=== PATIENT | female | born 1985 | race Native Hawaiian/Other Pacific Islander ===

== ENCOUNTER 2016-06-05 20:21 | Emergency (ER) | payer OTHER ==
[2016-06-05] MEDS ORDERED: Metoclopramide 10 MG/2 ML SDV IVPUSH ONE (21:52)
[2016-06-05] MEDS ORDERED: Sodium Chloride 0.9% 1,000 ML IV ONE (21:52)
[2016-06-05] MEDS ORDERED: diphenhydrAMINE 50 MG/ML SDV IVPUSH ONE (21:53)
[2016-06-05] MEDS ORDERED: Ketorolac 30 MG/ML SDV IVPUSH ONE (21:54)
[2016-06-05 23:28] VITALS: BP 131/85
--- NOTE | 2016-06-06 05:37 | ER ---
DATE SEEN: 06/05/2016 TIME SEEN: The patient was seen at 2055 hours. HISTORY OF PRESENT ILLNESS: This 31-year-old nulliparous woman, last menstrual period indeterminate, last Depo shot 04/18. She is sexually active with history onset at 1900 hours bilateral frontal temporal dull headache. She took ibuprofen. Did not relieve the headache. The headache was approximately 8/10 in intensity. It is similar to other headaches she has had in the past. She had bitemporal hemianopia that was transient, homonymous hemianopia. This lasted for a half hour and then relented. She has had a cold for the last 4 days with nasal congestion, sore throat, and mild chest discomfort with coughing. Last migraine was 06/02/2016. She has them frequently, once or twice a week. Never used Imitrex, just used [id number]-huxsetl medicines. She had mild sensation of numbness in the left lower extremity. CURRENT MEDICATIONS: 1. Hydroxyzine. 2. Venlafaxine 150 mg. 3. Montelukast 10 mg daily. 4. Vistaril 10 mg. 5. Loratadine 10 mg. ALLERGIES: Azithromycin and honey bee venom. History of asthma. A year ago she started diabetes pills; is not noted on the Red Med list. Her weight is 250 pounds. Status post appendectomy. Polycystic ovary disease diagnosed when she was 10 or 12 years of age. She has mild hirsutism. She has had previous laparoscopic hernia repairs. REVIEW OF SYSTEMS: Otherwise negative. PHYSICAL EXAMINATION: VITAL SIGNS: Blood pressure 152/95, heart rate 110, respirations 20, oxygen saturation 99%, temperature is 36.8 degrees centigrade. GENERAL: Alert, overweight woman, lying on her right side in somewhat of a position with covering her head. HEENT: PERRLA intact. Hearing intact. TMs negative. Pharynx without abnormality. NECK: Supple. No thyromegaly. No masses in neck. No cervical adenopathy. LUNGS: Clear to auscultation without rales, rhonchi, or wheezes. HEART: S1, S2. No irregular rate and rhythm. Mild sinus tachycardia. ABDOMEN: Soft. No guarding. No abdominal discomfort. NEUROLOGIC: Sitting up deep tendon reflexes upper and lower extremities hypoactive. Cranial nerves 2 through 12 intact. No past pointing. No pronator drift. No dysmetria. No decreased upper and lower body strength, 3+ out of 4+ strength. Gait appropriate. Romberg negative. ASSESSMENT: Migraine. The patient was treated with 1000 mL of normal saline flush, Reglan 10 mg IV, 50 mg Benadryl IV, and Toradol 30 mg IV. By 2250 hours her headache was gone. She was dismissed Toradol 10 mg, Reglan 10 mg, Benadryl 50 mg, Tylenol 1000 mg, take stat with the onset of headache. Follow up with doctor as needed, otherwise in 7 to 14 days. /[id number] RK/CALLIE MENDENHALL
== END 2016-06-05 23:25 | disposition home or self-care (01) ==
LOC: FB.ED 20:21
DX: G43.909 Migraine, unspecified, not intractable, without status migrainosus (principal); J45.909 Unspecified asthma, uncomplicated; Z88.1 Allergy status to other antibiotic agents; Z91.030 Bee allergy status
CPT/HCPCS: 87081; 87430; 96361; 96374; 96375; 99283; J1200; J1885; J2765; J7040

== ENCOUNTER 2016-08-01 22:25 | Emergency (ER) | payer OTHER ==
[2016-08-01 22:48] VITALS: BP 147/87
--- NOTE | 2016-08-01 22:57 | EDM.PDOC ---
ED HPI Trauma - General Chief Complaint: Lower Extremity Injury/Pain Stated Complaint: PAIN ON HER LT FOOT Time Seen by Provider: 08/01/16 22:45 Source: Reports: Patient, Old records History Limitations: Reports: No limitations - History of Present Illness INITIAL COMMENTS - FREE TEXT/NARRATIVE: Tammy comes into [facility] ED with a 3 hour hx of L lateral foot pain, significance unknown. 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 Pain without swelling seemed to emerge this pm , worse with palpation and wt bearing, and not improved with Ibuprofen 800 mg po. The R foot is asx. There is a PMH of Type II DM, currently on diet and oral meds. 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 Endocrine/Metabolic History: Reports: Diabetes, type II Social & Family History - Family History Family Medical History: Noncontributory - Tobacco Use Smoking Status *Q: Current Every Day Smoker Years of Tobacco use: 14 Packs/Tins Daily: 0.5 - Caffeine Use Caffeine Use: Reports: Energy drinks, Soda, Tea - Alcohol Use Days Per Week of Alcohol Use: 0 - Recreational Drug Use Recreational Drug Use: No - Living Situation & Occupation Living situation: Reports: Review of Systems - Review of Systems Review Of Systems: See Below Constitutional: Reports: no symptoms Eyes: Reports: no symptoms Ears: Reports: no symptoms Nose: Reports: no symptoms Mouth/Throat: Reports: no symptoms Respiratory: Reports: No Symptoms Cardiovascular: Reports: no symptoms GI/Abdominal: Reports: No symptoms Genitourinary: Reports: no symptoms Musculoskeletal: Reports: foot pain (left) Skin: Reports: no symptoms Neurological: Reports: No Symptoms Psychiatric: Reports: no symptoms Trauma Exam - Physical Exam Exam: See Below Exam Limited By: No limitations General Appearance: Reports: alert, WD/WN, no apparent distress Head: Reports: atraumatic, normocephalic Neck: Reports: non-tender, full range of motion, normal alignment, normal inspection Respiratory Exam: Reports: lungs clear Cardiovascular: Reports: normal peripheral pulses, regular rate, rhythm Back: Reports: full range of motion, normal inspection Extremities: Reports: no evidence of injury, normal range of motion, bony-point tenderness (overlying L 5th MT at base, no swelling or discoloration), pain with movement Neurologic: 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 No meds were dispensed. This is not a WC injury. Last Recorded V/S: Last Vital Signs Temp 36.8 C 08/01/16 22:41 Pulse 80 08/01/16 22:41 Resp 14 08/01/16 22:41 BP 147/87 H 08/01/16 22:41 Pulse Ox 98 08/01/16 22:41 Departure - Departure Time of Disposition: 22:55 Disposition: Home, Self-Care 01 Condition: fair Clinical Impression: Pain in left foot Forms: ED Department Discharge - Problem List & Annotations (1) Pain in left foot SNOMED Code(s): 18601660 Code(s): M79.672 - PAIN IN LEFT FOOT Status: Acute Current Visit: Yes Annotation/Comment:: Pain in L foot at base of 5th MT, and no injury hx. I suggested NSAIDs, ice massage, and follow up with PCP if sxs persist. - Problem List Review Problem List Initiated/Reviewed/Updated: Yes - Assessment/Plan Plan: Follow up with PCP if sxs persist.
== END 2016-08-01 22:59 | disposition home or self-care (01) ==
LOC: FB.ED 22:25
DX: M79.672 Pain in left foot (principal); E11.9 Type 2 diabetes mellitus without complications; F17.210 Nicotine dependence, cigarettes, uncomplicated; Z88.1 Allergy status to other antibiotic agents; Z91.030 Bee allergy status
CPT/HCPCS: 99283

== ENCOUNTER 2017-04-22 21:17 | Emergency (ER) | payer BC, OTHER ==
--- NOTE | 2017-04-22 21:41 | EDM.PDOC ---
ED HPI GENERAL MEDICAL PROBLEM - General Chief Complaint: Upper Extremity Injury/Pain Stated Complaint: FALL AND HURT RT WRIST Time Seen by Provider: 04/22/17 21:29 Source of Information: Reports: Patient History Limitations: Reports: No Limitations - History of Present Illness INITIAL COMMENTS - FREE TEXT/NARRATIVE: 32 y.o.w.f came to the ed 1 day after she slipped on ICE and fell onto her right wrist. No other acute medical issue. Pt has FROM of her wrist with minor discomfort. 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 Pain Score (Numeric/FACES): 7 - Related Data Allergies Allergy/AdvReac Type Severity Reaction Status Date / Time azithromycin [From Zithromax] Allergy Airway Verified 08/01/16 22:38 Tightness venom-honey bee Allergy Airway Verified 08/01/16 22:38 [bee venom (honey bee)] Tightness Home Meds: Home Meds metFORMIN [Glucophage XR] 500 mg PO BIDMEALS 08/01/16 [History] traZODone 50 mg PO BEDTIME 08/01/16 [History] Past Medical History - Past Health History Medical/Surgical History: Denies 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 Psychiatric History: Reports: Depression Endocrine/Metabolic History: Reports: Diabetes, Type II - Infectious Disease History Infectious Disease History: Reports: Chicken Pox - Past Surgical History GI Surgical History: Reports: Appendectomy Social & Family History - Family History Family Medical History: Noncontributory - Tobacco Use Smoking Status *Q: Current Every Day Smoker Years of Tobacco use: 14 Packs/Tins Daily: 0.5 - Caffeine Use Caffeine Use: Reports: Energy Drinks, Soda, Tea - Alcohol Use Days Per Week of Alcohol Use: 0 - Recreational Drug Use Recreational Drug Use: No - Living Situation & Occupation Living situation: Reports: Review of Systems - Review of Systems Review Of Systems: See Below Constitutional: Reports: No Symptoms Eyes: Reports: No Symptoms Ears: Reports: No Symptoms Nose: Reports: No Symptoms Mouth/Throat: Reports: No Symptoms Respiratory: Reports: No Symptoms Cardiovascular: Reports: No Symptoms GI/Abdominal: Reports: No Symptoms Genitourinary: Reports: No Symptoms Musculoskeletal: Reports: Joint Pain (right) Skin: Reports: No Symptoms Neurological: Reports: No Symptoms Psychiatric: Reports: No Symptoms ED EXAM, GENERAL - Physical Exam Exam: See Below Exam Limited By: No Limitations General Appearance: Alert, WD/WN, No Apparent Distress Eye Exam: Bilateral Eye: Normal Inspection Ears: Normal External Exam Ear Exam: Bilateral Ear: Auricle Normal Nose: Normal Inspection, Normal Mucosa, No Blood Throat/Mouth: Normal Inspection, Normal Lips Head: Atraumatic, Normocephalic Neck: Normal Inspection, Supple, Non-Tender, Full Range of Motion Respiratory/Chest: No Respiratory Distress, Lungs Clear, Normal Breath Sounds, Chest Non-Tender Cardiovascular: Normal Peripheral Pulses, Regular Rate, Rhythm, No Edema, No Murmur, No Rub, Tachycardia (initially, improbved to 11 BPM on D/C) Peripheral Pulses: 1+: Radial (L) GI/Abdominal: Normal Bowel Sounds, Soft, Non-Tender, No Organomegaly, No Abnormal Bruit (Female) Exam: Deferred Rectal (Female) Exam: Deferred Back Exam: Normal Inspection, Full Range of Motion Extremities: Normal Inspection, Normal Range of Motion, Normal Capillary Refill , Other (tender right mid wrist, neg snuff box sign) Neurological: Alert, Oriented, CN II-XII Intact Psychiatric: Normal Affect, Normal Mood Skin Exam: Warm, Dry, Intact, Normal Color, No Rash Lymphatic: No Adenopathy Course - Vital Signs Text/Narrative:: 32 y.o.w.f came to the ed 1 day after she slipped on ICE and fell onto her right wrist. No other acute medical issue. Pt has FROM of her wrist with minor discomfort. BP 170/92 pulse 123 RR 18 Pulse ox 95 Temp 36.9 PE: Minor discomfort right wrist to palpation. Imaging: R wrist: NAD, official report is pending Impression: right wrist sprain Tx: Ice, Motrin, Velcro splint Reexam: improved Pulse was 111 on D/C BP was 134/97 on D/C Plan: D/C with instructions Last Recorded V/S: Last Vital Signs Temp 36.6 C 04/22/17 21:29 Pulse 123 H 04/22/17 21:29 Resp 18 04/22/17 21:29 BP 170/92 H 04/22/17 21:29 Pulse Ox 95 04/22/17 21:29 - Orders/Labs/Meds Orders: Active Orders 24 hr Category Date Time Status Wrist Comp Min 3V Rt [CR] Stat Exams 04/22/17 21:28 Taken Departure - Departure Time of Disposition: 21:39 Disposition: Home, Self-Care 01 Condition: Good Clinical Impression: Left wrist sprain Qualifiers: Encounter type: initial encounter Qualified Code(s): S63.502A - Unspecified sprain of left wrist, initial encounter - Discharge Information Instructions: Wrist Sprain Referrals: Kostas Downs MD [Primary Care Provider] - Forms: ED Department Discharge Additional Instructions: please wear splint left wrist, please apply ice, rest and elevation, Motrin 600mg for pain every 98 hours with food. Please follow up, please come back if yours symptoms get worse acutely - My Orders Last 24 Hours: My Active Orders 04/22/17 21:28 Wrist Comp Min 3V Rt [CR] Stat - Assessment/Plan Last 24 Hours: My Active Orders 04/22/17 21:28 Wrist Comp Min 3V Rt [CR] Stat
[2017-04-23 02:48] VITALS: BP 139/82
--- NOTE | 2017-04-23 10:45 | CR ---
INDICATION: Fall, injury, swelling, pain. RIGHT WRIST: Three views of the right wrist revealed slight prominence of the volar fat pad line, raising question of a minimal wrist joint effusion. Additionally, the trabeculae in the distal shaft - metaphysis area of the radius appear slightly irregular and also at the adjacent ulna. This may be developmental. The possibility of a partial cortical fracture at these sites is difficult to entirely exclude. Depending upon clinical correlation, re- examination in 10-14 days should be of further diagnostic benefit regarding this possibility. No displaced fracture site, dislocation, or other significant bone or joint abnormality could be identified. MTDD
== END 2017-04-22 22:00 | disposition home or self-care (01) ==
LOC: FB.ED 21:17
DX: S63.501A Unspecified sprain of right wrist, initial encounter (principal); E11.9 Type 2 diabetes mellitus without complications; F17.210 Nicotine dependence, cigarettes, uncomplicated; Z79.84 Long term (current) use of oral hypoglycemic drugs; Z88.1 Allergy status to other antibiotic agents; Z91.030 Bee allergy status; W00.9XXA Unspecified fall due to ice and snow, initial encounter
CPT/HCPCS: 73110-RT; 99283

== ENCOUNTER 2019-02-02 20:26 | Emergency (ER) | payer BC, MEDICAID ==
[2019-02-02] MEDS ORDERED: Acetaminophen/Codeine 300-30 MG Tab PO ONE (20:27)
--- NOTE | 2019-02-02 20:54 | EDM.PDOC ---
ED HPI GENERAL MEDICAL PROBLEM - General Stated Complaint: KNEE Time Seen by Provider: 02/02/19 20:40 Source of Information: Reports: Patient - History of Present Illness INITIAL COMMENTS - FREE TEXT/NARRATIVE: pt c/o left knee sharp pain when ambulatory, states she woke up yesterday morning with this, denies any trauma or injury or any associated fever, chills, or swelling . pt denies any hx of similar problems in past, report using alive and it does not seem to help with pain. pt works at [employer] and report standing for long hrs. 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 Psychiatric History: Reports: Depression Endocrine/Metabolic History: Reports: Diabetes, Type II - Infectious Disease History Infectious Disease History: Reports: Chicken Pox - Past Surgical History GI Surgical History: Reports: Appendectomy Social & Family History - Family History Family Medical History: Noncontributory - Caffeine Use Caffeine Use: Reports: Energy Drinks, Soda, Tea - Living Situation & Occupation Living situation: Reports: ED ROS GENERAL - Review of Systems Review Of Systems: See Below Constitutional: Reports: No Symptoms Respiratory: Reports: No Symptoms Cardiovascular: Reports: No Symptoms GI/Abdominal: Reports: No Symptoms Skin: Reports: No Symptoms Neurological: Reports: No Symptoms ED EXAM, GI/ABD - Physical Exam Exam: See Below Exam Limited By: No Limitations General Appearance: Alert, Mild Distress Respiratory/Chest: No Respiratory Distress, Lungs Clear, Normal Breath Sounds Cardiovascular: Normal Peripheral Pulses, Regular Rate, Rhythm GI/Abdominal Exam: Normal Bowel Sounds, Soft, Non-Tender Extremities: Normal Inspection, Normal Range of Motion, Other (left knee is nl by inspection, no joint effusion or instabilty , pt has tendernss over the pattela and lateral bordes of left knee. ) Course - Vital Signs Text/Narrative:: clinically pt has a presentation consistent with tendinitis , and JOHN was applied, supportive mng was recommended. Departure - Departure Time of Disposition: 20:55 Disposition: Home, Self-Care 01 Clinical Impression: Knee pain, left - Discharge Information Referrals: Kostas Downs MD [Primary Care Provider] -
[2019-02-02] MEDS ORDERED: Acetaminophen/Codeine 300-30 MG Tab PO PRN (20:56)
[2019-02-02 21:53] VITALS: BP 145/90; PULSE 76
== END 2019-02-02 21:10 | disposition home or self-care (01) ==
LOC: FB.ED 20:26
DX: M25.562 Pain in left knee (principal); E11.9 Type 2 diabetes mellitus without complications; F32.9 Major depressive disorder, single episode, unspecified; Z79.84 Long term (current) use of oral hypoglycemic drugs; Z79.899 Other long term (current) drug therapy; Z88.1 Allergy status to other antibiotic agents; Z91.030 Bee allergy status
CPT/HCPCS: 99283; A9270

== ENCOUNTER 2019-08-20 15:10 | Emergency (ER) | payer BC ==
[2019-08-20 15:24] VITALS: BP 152/97; PULSE 97
--- NOTE | 2019-08-20 15:55 | EDM.PDOC ---
ED HPI GENERAL MEDICAL PROBLEM - General Chief Complaint: Eye Problems Stated Complaint: RT EYE PAIN Time Seen by Provider: 08/20/19 15:30 Source of Information: Reports: Patient History Limitations: Reports: No Limitations - History of Present Illness INITIAL COMMENTS - FREE TEXT/NARRATIVE: Patient presented to the ED because of pain on the right eye. She woke up and felt as if something is stuck on her right eye and with pain on blinking. right eye Pain Score (Numeric/FACES): 7 - Related Data Allergies Allergy/AdvReac Type Severity Reaction Status Date / Time azithromycin [From Zithromax] Allergy Airway Verified 02/02/19 21:53 Tightness venom-honey bee Allergy Airway Verified 02/02/19 21:53 [bee venom (honey bee)] Tightness Home Meds: Home Meds traZODone 100 mg PO BEDTIME 08/01/16 [History] Montelukast Sodium [Singulair] 10 mg PO DAILY 02/02/19 [History] Pantoprazole Sodium [Protonix] 40 mg PO DAILY 02/02/19 [History] Spironolactone [Aldactone] 100 mg PO DAILY 02/02/19 [History] Venlafaxine HCl [Venlafaxine ER] 150 mg PO DAILY 02/02/19 [History] atorvaSTATin [Lipitor] 20 mg PO BEDTIME 02/02/19 [History] metFORMIN HCl [Metformin HCl] 1,000 mg PO BID 02/02/19 [History] Hydrocort/Neomycin/Polymyxin B [Cortisporin Ophth Susp] 2 drop OP QID #1 bottle 08/20/19 [Rx] Past Medical History - Past Health History Medical/Surgical History: Denies 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 Psychiatric History: Reports: Depression Endocrine/Metabolic History: Reports: Diabetes, Type II - Infectious Disease History Infectious Disease History: Reports: Chicken Pox - Past Surgical History GI Surgical History: Reports: Appendectomy Social & Family History - Family History Family Medical History: Noncontributory - Tobacco Use Smoking Status *Q: Current Every Day Smoker Years of Tobacco use: 15 Packs/Tins Daily: 0.2 - Caffeine Use Caffeine Use: Reports: Energy Drinks - Recreational Drug Use Recreational Drug Use: No - Living Situation & Occupation Living situation: Reports: ED ROS GENERAL - Review of Systems Review Of Systems: See Below Constitutional: Reports: No Symptoms HEENT: Reports: Eye Pain Respiratory: Reports: No Symptoms Cardiovascular: Reports: No Symptoms Endocrine: Reports: No Symptoms GI/Abdominal: Reports: No Symptoms : Reports: No Symptoms Musculoskeletal: Reports: No Symptoms Skin: Reports: No Symptoms ED EXAM GENERAL W FULL EYE - Physical Exam Exam: See Below Exam Limited By: Intoxication General Appearance: Alert, No Apparent Distress Eye Exam: Bilateral Eye: PERRL Cornea Exam: Right: Corneal Abrasion (3 mm at the center) Ears: Normal External Exam, Normal Canal Nose: Normal Inspection, Normal Mucosa Throat/Mouth: Normal Inspection, Normal Lips Head: Atraumatic, Normocephalic Neck: Normal Inspection, Supple, Non-Tender Respiratory/Chest: No Respiratory Distress, Lungs Clear, Normal Breath Sounds Cardiovascular: Normal Peripheral Pulses, Regular Rate, Rhythm, No Edema, No Gallop GI/Abdominal: Normal Bowel Sounds, Soft, Non-Tender, No Organomegaly Back Exam: Normal Inspection, Full Range of Motion Extremities: Normal Inspection, Normal Range of Motion, Non-Tender Course - Vital Signs Text/Narrative:: The right eye was stained with a fluorescein stain and 2 drops of teracaine was instilled to numb it. There is no FB identified,however, there is 3 mm corneal abrasion at the very center. Last Recorded V/S: Last Vital Signs Temp 37.1 C 08/20/19 15:24 Pulse 97 20 15:24 Resp 14 08/20/19 15:24 BP 152/97 H 08/20/19 15:24 Pulse Ox 100 08/20/19 15:24 Departure - Departure Time of Disposition: 15:50 Disposition: Home, Self-Care 01 Condition: Good Clinical Impression: Corneal abrasion - Discharge Information Prescriptions: Hydrocort/Neomycin/Polymyxin B [Cortisporin Ophth Susp] 2 drop OP QID #1 bottle Instructions: Corneal Abrasion, [id number] Referrals: Kostas Downs MD [Primary Care Provider] - Forms: ED Department Discharge Additional Instructions: please read discharge instructions on corneal abrasion do not rub your eyes apply ice pack apply 1-2 drop of the tetracaine ey drops every 2 hours as needed for severe pain cortisporin eye drop, 2 drops to the right eye 4 times daily for 7 days follow up with an eye doctor of symptoms persist Sepsis Event Note - Evaluation Sepsis Screening Result: No Definite Risk - Focused Exam Vital Signs: Vital Signs Temp Pulse Resp BP Pulse Ox 08/20/19 15:24 37.1 C 97 14 152/97 H 100 Date Exam was Performed: 08/20/19 Time Exam was Performed: 16:00
== END 2019-08-20 16:05 | disposition home or self-care (01) ==
LOC: FB.ED 15:10
DX: S05.01XA Injury of conjunctiva and corneal abrasion without foreign body, right eye, initial encounter (principal); F17.210 Nicotine dependence, cigarettes, uncomplicated; E11.9 Type 2 diabetes mellitus without complications; Z79.84 Long term (current) use of oral hypoglycemic drugs; Z79.899 Other long term (current) drug therapy; F32.9 Major depressive disorder, single episode, unspecified; Z91.030 Bee allergy status; Z88.1 Allergy status to other antibiotic agents; W22.8XXA Striking against or struck by other objects, initial encounter
CPT/HCPCS: 99283

== ENCOUNTER 2020-11-27 22:29 | Emergency (ER) | payer BC ==
[2020-11-27] MEDS ORDERED: EPINEPHrine 1 MG/ML SDV IM ONE (22:40)
[2020-11-27] MEDS ORDERED: Sodium Chloride 0.9% 10 ML Syringe FLUSH PRN (22:40)
[2020-11-27] MEDS ORDERED: Famotidine 20 MG/2 ML SDV IVPUSH ONE (22:40)
[2020-11-27] MEDS ORDERED: diphenhydrAMINE 50 MG/ML SDV IVPUSH ONE (22:40)
[2020-11-27] MEDS ORDERED: methylPREDNISolone Sodium Succinate 125 MG/2 ML SDV IVPUSH ONE (22:42)
[2020-11-27] MEDS ORDERED: Sodium Chloride 0.9% 1,000 ML IV SCH (22:45)
--- NOTE | 2020-11-27 22:46 | EDM.PDOC ---
ED HPI GENERAL MEDICAL PROBLEM - General Stated Complaint: bee sting/allergic Time Seen by Provider: 11/27/20 22:42 Source of Information: Reports: Patient History Limitations: Reports: No Limitations - History of Present Illness INITIAL COMMENTS - FREE TEXT/NARRATIVE: Tammy complains of a bee sting to the lower lip of the mouth,about 1 and 1/2 hr ago. She complains of feeling anxious and has swelling of the tongue and throat. She has a previous allergic reaction to the bee stings where by she had difficultly breathing - Related Data Allergies Allergy/AdvReac Type Severity Reaction Status Date / Time azithromycin [From Zithromax] Allergy Airway Verified 02/02/19 21:53 Tightness venom-honey bee Allergy Airway Verified 02/02/19 21:53 [bee venom (honey bee)] Tightness Home Meds: Home Meds traZODone 100 mg PO BEDTIME 08/01/16 [History] Montelukast Sodium [Singulair] 10 mg PO DAILY 02/02/19 [History] Pantoprazole Sodium [Protonix] 40 mg PO DAILY 02/02/19 [History] Spironolactone [Aldactone] 100 mg PO DAILY 02/02/19 [History] Venlafaxine HCl [Venlafaxine ER] 150 mg PO DAILY 02/02/19 [History] atorvaSTATin [Lipitor] 20 mg PO BEDTIME 02/02/19 [History] metFORMIN HCl [Metformin HCl] 1,000 mg PO BID 02/02/19 [History] Hydrocort/Neomycin/Polymyxin B [Cortisporin Ophth Susp] 2 drop OP QID #1 bottle 08/20/19 [Rx] predniSONE 20 mg PO BID #10 tab 11/27/20 [Rx] Past Medical History - Past Health History Medical/Surgical History: Denies Medical/Surgical History [employer] History: Reports: Polycystic Ovaries Psychiatric History: Reports: Depression Endocrine/Metabolic History: Reports: Diabetes, Type II - Infectious Disease History Infectious Disease History: Reports: Chicken Pox - Past Surgical History GI Surgical History: Reports: Appendectomy Social & Family History - Family History Family Medical History: No Pertinent Family History - Caffeine Use Caffeine Use: Reports: Energy Drinks - Living Situation & Occupation Living situation: Reports: ED ROS GENERAL - Review of Systems Review Of Systems: Comprehensive ROS is negative, except as noted in HPI. ED EXAM, SKIN/RASH Exam: See Below Exam Limited By: No Limitations General Appearance: Alert, Anxious Ears: Normal External Exam Nose: Normal Inspection Throat/Mouth: No: Normal Lips (mild edema of lower lip ) Neck: Normal Inspection, Supple, Non-Tender, Full Range of Motion Respiratory/Chest: No Respiratory Distress, Lungs Clear, Normal Breath Sounds Cardiovascular: Tachycardia Extremities: Normal Inspection Neurological: Alert, Oriented, CN II-XII Intact Course - Orders/Labs/Meds Orders: Active Orders 24 hr Category Date Time Status Sodium Chloride 0.9% [Normal Saline] 1,000 ml Med 11/27/20 22:45 Active IV ASDIRECTED Sodium Chloride 0.9% [Saline Flush] Med 11/27/20 22:40 Active 10 ml FLUSH ASDIRECTED PRN Peripheral IV Insertion Adult [OM.PC] Routine Oth 11/27/20 22:40 Ordered Medication Orders Sodium Chloride (Normal Saline) 1,000 mls @ 999 mls/hr IV ASDIRECTED ISAEL Last Admin: 11/27/20 22:55 Dose: 999 mls/hr Documented by: BRENDA Sodium Chloride (Sodium Chloride 0.9% 10 Ml Syringe) 10 ml FLUSH ASDIRECTED PRN PRN Reason: Keep Vein Open Meds: Medications Generic Name Dose Route Start Last Admin Trade Name Freq PRN Reason Stop Dose Admin Sodium Chloride 1,000 mls @ 999 mls/hr 11/27/20 22:45 11/27/20 22:55 Normal Saline IV 999 mls/hr ASDIRECTED ISAEL Administration Sodium Chloride 10 ml 11/27/20 22:40 Sodium Chloride 0.9% 10 Ml Syringe FLUSH ASDIRECTED PRN Keep Vein Open Discontinued Medications Generic Name Dose Route Start Last Admin Trade Name Freq PRN Reason Stop Dose Admin Diphenhydramine HCl 50 mg 11/27/20 22:40 11/27/20 23:07 Diphenhydramine 50 Mg/Ml Sdv IVPUSH 11/27/20 22:41 50 mg ONETIME ONE Administration Epinephrine HCl 0.5 mg 11/27/20 22:40 11/27/20 23:09 Epinephrine 1 Mg/Ml Sdv IM 11/27/20 22:41 0.5 mg ONETIME ONE Administration Famotidine 20 mg 11/27/20 22:40 11/27/20 23:21 Famotidine 20 Mg/2 Ml Sdv IVPUSH 11/27/20 22:41 Not Given ONETIME ONE Famotidine Confirm 11/27/20 23:17 11/27/20 23:20 Famotidine In Ns Premix Administered 11/27/20 23:18 Not Given Dose 20 mg in 50 mls @ as directed .ROUTE .STK-MED ONE Famotidine 20 mg/ Premix 50 mls @ 200 mls/hr 11/27/20 23:19 11/27/20 23:20 IV 11/27/20 23:20 200 mls/hr ONETIME ONE Administration Ibuprofen 800 mg 11/27/20 23:45 Ibuprofen 800 Mg Tab PO 11/27/20 23:46 ONETIME ONE Methylprednisolone Sodium Succinate 125 mg 11/27/20 22:42 11/27/20 23:03 Methylprednisolone Sodium Succinate 125 Mg/2 Ml Sdv IVPUSH 11/27/20 22:43 125 mg ONETIME ONE Administration Departure - Departure Time of Disposition: 23:52 Disposition: Home, Self-Care 01 Clinical Impression: Bee sting - Discharge Information Prescriptions: predniSONE 20 mg PO BID #10 tab Instructions: Bee, Wasp, or Hornet Sting, Adult - Problem List & Annotations (1) Bee sting allergy SNOMED Code(s): 450245977 Code(s): Z91.030 - BEE ALLERGY STATUS Status: Acute Current Visit: No - Problem List Review Problem List Initiated/Reviewed/Updated: Yes - My Orders Last 24 Hours: My Active Orders 11/27/20 22:40 Sodium Chloride 0.9% [Saline Flush] 10 ml FLUSH ASDIRECTED PRN Peripheral IV Insertion Adult [OM.PC] Routine 11/27/20 22:45 Sodium Chloride 0.9% [Normal Saline] 1,000 ml IV ASDIRECTED - Assessment/Plan Last 24 Hours: My Active Orders 11/27/20 22:40 Sodium Chloride 0.9% [Saline Flush] 10 ml FLUSH ASDIRECTED PRN Peripheral IV Insertion Adult [OM.PC] Routine 11/27/20 22:45 Sodium Chloride 0.9% [Normal Saline] 1,000 ml IV ASDIRECTED Plan: We will obtain IV access,start a crystalloid.Place on a monitored bed,give epipen. Then Solumedrol/Benadryl and Pepcid.Discharged on oral prednisone
[2020-11-27] MEDS ORDERED: Famotidine/Normal Saline 20 MG/50 ML BAG ONE (23:17)
[2020-11-27] MEDS ORDERED: Famotidine/Normal Saline 20 MG in Premix Bag 1 BAG IV ONE (23:19)
[2020-11-27] MEDS ORDERED: Ibuprofen 800 MG Tab PO ONE (23:45)
[2020-11-29 22:29] VITALS: BP 169/104; PULSE 118
== END 2020-11-28 00:45 | disposition home or self-care (01) ==
LOC: FB.ED 22:29
DX: T63.441A Toxic effect of venom of bees, accidental (unintentional), initial encounter (principal); E11.9 Type 2 diabetes mellitus without complications; Z88.1 Allergy status to other antibiotic agents; Z91.030 Bee allergy status; Z79.84 Long term (current) use of oral hypoglycemic drugs; Z79.899 Other long term (current) drug therapy
CPT/HCPCS: 96372; 96374; 96375; 99282; A9270; J0171; J1200; J2930; J7030

== ENCOUNTER 2023-12-12 19:20 | Emergency (ER) | payer SELFPAY ==
[2023-12-12] MEDS ORDERED: Sodium Chloride 0.9% 10 ML Syringe FLUSH PRN (19:41)
[2023-12-12] MEDS: diphenhydrAMINE 50 MG/ML SDV IVPUSH ONE (19:46)
[2023-12-12] MEDS: methylPREDNISolone Sodium Succinate 125 MG/2 ML SDV IVPUSH ONE (19:46)
[2023-12-12 20:37] VITALS: BP 145/86; PULSE 109
== END 2023-12-12 20:20 | disposition home or self-care (01) ==
LOC: FB.ED 19:20
DX: T63.461A Toxic effect of venom of wasps, accidental (unintentional), initial encounter (principal); E11.9 Type 2 diabetes mellitus without complications; Z90.49 Acquired absence of other specified parts of digestive tract; Z79.899 Other long term (current) drug therapy; Z79.84 Long term (current) use of oral hypoglycemic drugs; Z88.1 Allergy status to other antibiotic agents; Z91.030 Bee allergy status
CPT/HCPCS: 96374; 96375; 99283; J1200; J2919

== ENCOUNTER 2024-07-24 14:31 | Emergency (ER) | payer SELFPAY ==
[2024-07-24 14:53] VITALS: PULSE 95
[2024-07-24 14:56] LABS: HEMATOCRIT 33.4 % (34.2-48.2); HEMOGLOBIN 11.4 g/dL (11.4-15.5); MEAN CORPUSCULAR HEMOGLOBIN 28.9 pg (23.9-33.9); MEAN CORPUSCULAR VOLUME 84.9 fL (76.7-100.5); MEAN PLATELET VOLUME 7.8 fL (7.1-12.4); PLATELET COUNT,PLT 355 x10(3)uL (151-488); RED BLOOD CELL COUNT 3.93 x10(6)uL (3.60-5.20); RED CELL DISTRIBUTION WIDTH 14.8 % (12.3-16.5); WHITE BLOOD CELL COUNT,WBC 18.2 x10-3/uL (3.0-10.3)
[2024-07-24] MEDS: Aspirin 81 MG Tab.Chew PO ONE (14:56)
[2024-07-24 15:00] LABS: BLOOD UREA NITROGEN,BUN 10 mg/dL (7-18); CALCIUM 9.2 mg/dL (8.6-10.2); CARBON DIOXIDE,CO2 21 mmol/L (21-32); CHLORIDE,CL 104 mmol/L (100-110); ESTIMATED GFR 73 mL/min (>60); GLUCOSE RANDOM 174 mg/dL (80-116); SODIUM,NA 139 mmol/L (135-145)
[2024-07-24] MEDS: Nitroglycerin 0.4 MG Tab.SL SL PRN (15:04)
[2024-07-24 15:05] VITALS: BP 124/74
[2024-07-24 15:06] LABS: A/G RATIO 0.8; ALANINE AMINOTRANSFERASE,ALT 23 U/L (12-36); ALBUMIN 3.3 g/dL (3.5-5.2); ALKALINE PHOSPHATASE 94 IU/L (56-112); ASPARTATE AMNIOTRANSFERASE,AST 24 IU/L (5-25); BILIRUBIN TOTAL 0.7 mg/dL (0.1-1.3); PROTEIN TOTAL,TP 7.7 g/dL (6.0-8.0)
[2024-07-24 15:12] LABS: PRO B-TYPE NATRIUR PEPT,BNPPRO 639 pg/mL (<=125)
[2024-07-24 15:14] LABS: BASOPHILS PERCENT MAN 1 % (0-2); EOSINOPHILS PERCENT MAN 1 % (0-5); LYMPHOCYTES PERCENT MAN 10 % (13-37); MONOCYTES PERCENT MAN 7 % (4-12); SEG NEUTROPHILS PERCENT MAN 81 % (46-82); TROPONIN I < 4.0 pg/mL (4.0-60.3)
[2024-07-24 15:23] LABS: D-DIMER QUANTITATIVE 0.94 mg/LFEU (0.0-0.59)
[2024-07-24 15:28] LABS: INR 1.09 (1.00-1.24); PROTHROMBIN TIME 11.2 sec (9.0-11.1); PTT,PARTIAL THROMBOPLSTIN TIME 31.7 SECONDS (24.4-33.2)
[2024-07-24] MEDS ORDERED: cefTRIAXone 1 GM Vial IVPUSH STA (15:49)
[2024-07-24] MEDS: Ketorolac 30 MG/ML SDV IVPUSH ONE (16:06)
[2024-07-24] MEDS: Sodium Chloride 0.9% 1,000 ML IV SCH (16:06)
[2024-07-24] MEDS: cefTRIAXone 2 GM Vial IVPUSH STA (16:06)
[2024-07-24] MEDS: Iopamidol 755 Mg/ML 100 ML Bottle IV SCH (16:10)
== END 2024-07-24 18:18 | disposition home or self-care (01) ==
LOC: FB.ED 14:31
DX: J18.9 Pneumonia, unspecified organism (principal); E11.9 Type 2 diabetes mellitus without complications; Z88.1 Allergy status to other antibiotic agents; Z91.030 Bee allergy status; Z79.84 Long term (current) use of oral hypoglycemic drugs; Z79.899 Other long term (current) drug therapy
CPT/HCPCS: 36415; 71045; 71275; 80053; 83880; 84484; 85025; 85379; 85610; 85730; 93005; 93010; 96361; 96374; 96375; 99284; 99285-25; A9270-GY; J0696; J1885; J7030; Q9967